=== PATIENT | male | born 1950 | race Caucasian/White ===

== ENCOUNTER 2017-01-22 14:43 | Outpatient (CLI) | payer MEDICARE, OTHER | END 2017-01-22 14:44 | disposition home or self-care (01) | DX: I10 Essential (primary) hypertension (principal); E78.5 Hyperlipidemia, unspecified; R73.9 Hyperglycemia, unspecified; Z13.29 Encounter for screening for other suspected endocrine disorder ==

== ENCOUNTER 2017-06-16 08:18 | Day surgery (SDC) | payer MEDICARE ==
[2017-06-16] MEDS ORDERED: LACTATED RINGERS 1,000 ML IV ONE (08:20)
[2017-06-16] MEDS ORDERED: fentaNYL 100 MCG/2 ML VIAL IVP ONE ×2 (09:50→11:11)
[2017-06-16] MEDS ORDERED: MIDAZOLAM 2 MG/2 ML VIAL IVP ONE ×2 (09:50→11:11)
[2017-06-16] MEDS ORDERED: LACTATED RINGERS 500 ML IV ONE (10:59)
[2017-06-16 11:11] VITALS: BP 114/73
== END 2017-06-16 08:19 | disposition home or self-care (01) ==
LOC: SDS 08:18
PROVIDERS: ATTEND Surgery
PROC: 0DBE8ZX Excision of Large Intestine, Via Natural or Artificial Opening Endoscopic, Diagnostic (ICD-10-PCS; principal; 2017-06-16 09:15)
DX: Z12.11 Encounter for screening for malignant neoplasm of colon (principal); D12.3 Benign neoplasm of transverse colon; D12.4 Benign neoplasm of descending colon; D12.5 Benign neoplasm of sigmoid colon; K57.90 Diverticulosis of intestine, part unspecified, without perforation or abscess without bleeding; I10 Essential (primary) hypertension; E11.40 Type 2 diabetes mellitus with diabetic neuropathy, unspecified; Z79.84 Long term (current) use of oral hypoglycemic drugs; E78.5 Hyperlipidemia, unspecified; F17.210 Nicotine dependence, cigarettes, uncomplicated
CPT/HCPCS: 45384; 88305; J7120

== ENCOUNTER 2017-09-11 08:00 | Outpatient (CLI) | payer MEDICARE ==
[2017-09-12 14:21] LABS: TEST RESULT REPORT
== END 2017-09-11 08:01 | disposition home or self-care (01) ==
LOC: LAB.R 08:00
PROVIDERS: ATTEND Nurse Practitioner Family
DX: R19.7 Diarrhea, unspecified (principal)
CPT/HCPCS: 81599; 87045; 87046; 87177; 87209; 87493

== ENCOUNTER 2018-03-26 15:22 | Outpatient (CLI) | END 2018-03-26 15:23 | disposition home or self-care (01) ==

== ENCOUNTER 2018-04-08 07:28 | Day surgery (SDC) | payer MEDICARE ==
[~2018-04-08 07:28] MED LIST: BRIMONIDINE 0.2% OPHTH DROPS 5 ML ONE; BSS/LIDOCAINE/EPINEPHRINE 1 ML SYRINGE ONE; EPINEPHrine 1 MG/ML AMP ONE; TIMOLOL 0.5% OPHTH DROPS ONE; TRIAMCIN/MOXIFLOX OPHTHALMIC 0.6 ML VIAL IO ONE; VANCOMYCIN OPHTHALMI 8MG/0.8ML 8 MG/0.8 ML SYRINGE IO ONE
[2018-04-08] MEDS ORDERED: KETOROLAC 0.45% OPHTH DROPS ONE (07:30)
[2018-04-08] MEDS ORDERED: CYCLOPENTOLATE 1% OPHTH DROPS 2 ML ONE (07:31)
[2018-04-08] MEDS ORDERED: PHENYLEPHRINE 2.5% OPHTH 2 ML DROPS ONE (07:31)
[2018-04-08] MEDS ORDERED: PROPARACAINE 0.5% OPHTH DROPS 15 ML ONE (07:31)
[2018-04-08] MEDS ORDERED: CYCLOPENTOLATE 1% OPHTH DROPS 2 ML RIGHTEYE ONE (07:50)
[2018-04-08] MEDS ORDERED: PROPARACAINE 0.5% OPHTH DROPS 15 ML RIGHTEYE ONE ×2 (07:50→09:10)
[2018-04-08] MEDS ORDERED: KETOROLAC 0.45% OPHTH DROPS RIGHTEYE ONE (07:50)
[2018-04-08] MEDS ORDERED: PHENYLEPHRINE 2.5% OPHTH 2 ML DROPS RIGHTEYE ONE (07:50)
[2018-04-08] MEDS ORDERED: LACTATED RINGERS 500 ML IV ONE (08:07)
[2018-04-08] MEDS ORDERED: BRIMONIDINE 0.2% OPHTH DROPS 5 ML OPTH ONE (09:10)
[2018-04-08] MEDS ORDERED: MIDAZOLAM 2 MG/2 ML VIAL IVP ONE (09:10)
[2018-04-08] MEDS ORDERED: TIMOLOL 0.5% OPHTH DROPS OPTH ONE (09:10)
[2018-04-08] MEDS ORDERED: EPINEPHrine 1 MG/ML AMP IR ONE (09:10)
[2018-04-08] MEDS ORDERED: BSS/LIDOCAINE/EPINEPHRINE 1 ML SYRINGE IO ONE (09:10)
[2018-04-08] MEDS ORDERED: CHONDR SULF/HYALURONATE SYRINGE IO ONE (09:10)
[2018-04-08 09:59] VITALS: BP 129/54
--- NOTE | 2018-04-08 10:41 | OPERATIVE REPORT ---
DATE OF SERVICE: 04/08/2018 Physician: Samy Stacy MD PREOPERATIVE DIAGNOSIS: Visually significant cataract, right eye. Cataract surgery was performed on his left eye on 12/20/2015. POSTOPERATIVE DIAGNOSIS: Visually significant cataract, right eye. Cataract surgery was performed on his left eye on 12/20/2015. PROCEDURE: Phacoemulsification with posterior chamber intraocular lens implant, right eye. SURGEON: Samy Stacy MD ANESTHESIA: Monitored anesthesia care. COMPLICATIONS: None. OPERATIVE INDICATIONS: This is a 67-year-old man with progressive vision loss in the right eye due to 3+ nuclear sclerotic cataract. Best corrected visual acuity was 20/30 with glare to 20/60 in the right eye. INDICATIONS FOR SURGERY: Overall decrease in vision, difficulty seeing words on the computer screen, difficulty reading, difficulty seeing words, closed captions with game scores on TV, difficulty driving in low light or at night, difficulty driving at night because of headlights from other vehicles, difficulty with glare or bright lights in any situation, and difficulty tracking a golf ball. He was consented at length concerning risks and benefits of cataract surgery, after which he expressed a desire to proceed with surgery. OPERATIVE PROCEDURE: The patient was taken to OR #3 and placed under monitored anesthesia care. Surgical timeout was conducted confirming correct patient, correct procedure, and correct surgical site. He was given topical anesthesia and then prepped and draped in usual sterile fashion. The eye was entered at the 12 and 9 o'clock positions. Intracameral Shugarcaine was injected into the anterior chamber, followed by Viscoat. A continuous-tear curvilinear capsulorrhexis was performed. The nucleus was hydrodissected and phacoemulsified. The cortex was evacuated using automated infusion and aspiration. Provisc was injected in the capsular bag, and a 24.0 diopter intraocular lens was inserted in the bag. Approximately 0.9 mL of a mixture of triamcinolone, moxifloxacin, and vancomycin was injected subconjunctivally in the superior quadrant for infection and inflammation prophylaxis. I and A was used to evacuate the viscoelastic materials. The eye was inflated to physiologic pressure using balanced salt solution and found to be watertight. The patient was taken from the operating room in good condition and given postop instructions. TD: 04/08/2018 09:38
== END 2018-04-08 07:29 | disposition home or self-care (01) ==
LOC: SDS 07:28
PROVIDERS: ATTEND Ophthalmology
PROC: 08RJ3JZ Replacement of Right Lens with Synthetic Substitute, Percutaneous Approach (ICD-10-PCS; principal; 2018-04-08 08:30)
DX: H25.11 Age-related nuclear cataract, right eye (principal); I10 Essential (primary) hypertension; F17.210 Nicotine dependence, cigarettes, uncomplicated; I48.91 Unspecified atrial fibrillation; H46.8 Other optic neuritis; E11.42 Type 2 diabetes mellitus with diabetic polyneuropathy
CPT/HCPCS: 66984; A9270; J3490; V2632

== ENCOUNTER 2018-07-30 15:29 | Outpatient (CLI) | payer MEDICARE ==
[2018-07-30 18:30] LABS: BUN - BLOOD UREA NITROGEN < 5 mg/dL (6-20); CALCIUM 8.5 mg/dL (8.5-10.3); CARBON DIOXIDE - CO2 27 mmol/L (21-32); CHLORIDE 99 mmol/L (101-111); CREATININE 0.8 mg/dL (0.6-1.2); GFR - MDRD 96 (>89); GLUCOSE 97 mg/dL (70-100); SODIUM 137 mmol/L (135-145)
[2018-07-30 19:23] LABS: HB2 TOTAL 12.3 g/dL; HEMOGLOBIN A1C 0.44 g/dL; HEMOGLOBIN A1C % 5.4 % (4.6-6.2)
== END 2018-07-30 15:30 | disposition home or self-care (01) ==
LOC: LAB.F 15:29
PROVIDERS: ATTEND Nurse Practitioner Family
DX: E11.9 Type 2 diabetes mellitus without complications (principal); I10 Essential (primary) hypertension
CPT/HCPCS: 36415; 80048; 83036

== ENCOUNTER 2018-11-19 15:09 | Outpatient (CLI) | payer MEDICARE ==
[2018-11-19 20:44] LABS: HB2 TOTAL 12.2 g/dL; HEMOGLOBIN A1C 0.48 g/dL; HEMOGLOBIN A1C % 5.8 % (4.6-6.2)
== END 2018-11-19 15:10 | disposition home or self-care (01) ==
LOC: LAB.F 15:09
PROVIDERS: ATTEND Nurse Practitioner Family
DX: E11.9 Type 2 diabetes mellitus without complications (principal)
CPT/HCPCS: 36415; 83036

== ENCOUNTER 2019-09-08 09:16 | Outpatient (CLI) | payer MEDICARE | END 2019-09-08 09:17 | disposition short-term general hospital (02) | LOC: EMS 09:16 | PROVIDERS: ATTEND Surgery | DX: R40.20 Unspecified coma (principal); R09.89 Other specified symptoms and signs involving the circulatory and respiratory systems; R53.83 Other fatigue; S69.92XA Unspecified injury of left wrist, hand and finger(s), initial encounter; W10.9XXA Fall (on) (from) unspecified stairs and steps, initial encounter; Y92.009 Unspecified place in unspecified non-institutional (private) residence as the place of occurrence of the external cause | CPT/HCPCS: A0425; A0427 ==

== ENCOUNTER 2019-11-11 12:34 | Outpatient (CLI) | payer MEDICARE ==
[2019-11-11 13:00] LABS: ALBUMIN 3.2 g/dL (3.2-5.5); ALBUMIN/GLOBULIN RATIO 0.7 (1.0-2.2); ALKALINE PHOSPHATASE 108 IU/L (42-121); ALT ALANINE AMINOTRANSFERASE < 10 IU/L (10-60); AST ASPARTATE AMINOTRANSFERASE 24 IU/L (10-42); BILIRUBIN,TOTAL 0.6 mg/dL (0.2-1.0); BUN - BLOOD UREA NITROGEN < 5 mg/dL (6-20); CALCIUM 8.6 mg/dL (8.5-10.3); CARBON DIOXIDE - CO2 25 mmol/L (21-32); CHLORIDE 101 mmol/L (101-111); CREATININE 0.8 mg/dL (0.6-1.2); GFR - MDRD 96 (>89); GLUCOSE 144 mg/dL (70-100); SODIUM 136 mmol/L (135-145); TOTAL PROTEIN 7.5 g/dL (6.7-8.2)
[2019-11-11 13:06] LABS: HB2 TOTAL 9.3 g/dL; HEMOGLOBIN A1C 0.38 g/dL; HEMOGLOBIN A1C % 5.9 % (4.6-6.2)
[2019-11-11] MEDS ORDERED: GADOBUTROL 10 MMOL/10 ML VIAL ONE (13:19)
[2019-11-11] MEDS ORDERED: GADOBUTROL 10 MMOL/10 ML VIAL IVP ONE (14:09)
--- NOTE | 2019-11-12 13:55 | MRI Report ---
Reason: MENINGIOMA Procedure Date: 11/11/2019 Accession Number: [id number] / [id number] Procedure: MRI - Brain W/WO CPT Code: Addended Final Report FULL RESULT: EXAM: MRI BRAIN WITHOUT AND WITH CONTRAST EXAM DATE: 11/11/2019 02:21 PM. CLINICAL HISTORY: 69-year-old with history of meningioma postresection. Evaluate for intracranial pathology. COMPARISON: Outside CT head report 09/26/2019. TECHNIQUE: Multiplanar, multisequence T1-weighted and fluid-sensitive MR sequences of the brain were performed before and after administration of intravenous contrast. Sequences optimized for routine evaluation. Other: None. IV Contrast: 8 mL Gadavist. FINDINGS: Brain Volume: Normal for age. Parenchyma: Postsurgical changes of right frontal temporal craniotomy for resection of a right frontal convexity extra-axial mass lesion. No acute parenchymal hemorrhage or mass seen. There is 4 mm of leftward midline shift. There is mild bilateral areas of T2/FLAIR signal hyperintensity seen. No areas of restricted diffusion seen to suggest acute infarct. No areas of abnormal parenchymal hemosiderin deposition. No abnormal postcontrast enhancement. Ventricles/Cisterns: Postsurgical changes of right frontal temporal craniotomy with a extra-axial collection underlying the craniotomy defect measuring up to 11 mm in maximal thickness (series 601, image 14). There is T2 signal hyperintensity and FLAIR signal hyperintensity layering dependently that may represent proteinaceous debris or old hemosiderin blood products. There is associated mass effect on the underlying brain parenchyma with 4 mm of leftward midline shift. No other definite abnormal extra-axial fluid collection/mass seen. No evidence of hydrocephalus. No evidence of intraventricular hemorrhage. Orbits: Changes of bilateral lens replacement. Sella Turcica: The pituitary gland, cavernous sinuses, suprasellar cistern and optic chiasm are unremarkable. IAC: Symmetric and unremarkable. Vasculature: Normal signal flow void is seen in the major arterial structures at the skull base. The dural sinuses are patent and enhance normally. Sinuses: Tiny bilateral maxillary mucosal retention cysts versus polyps. Minimal mucosal thickening of the mastoid air cells. Small to moderate right and trace left mastoid effusions. Bones: Post surgical changes as detailed above. Other: T2 hyperintense lesion involving the left paramedian posterior nasopharynx measuring 11 x 18 mm (series 601, image 4) that may represent mucosal retention cyst. There is a right paramedian posterior nasopharynx T2 hyperintense lesion measuring 6 x 9 mm (601, image 4) also likely representing mucosal retention cyst. IMPRESSION: 1. Post surgical changes of right frontal temporal craniotomy for resection of a right frontal convexity extra-axial mass lesion. No definite new mass or mass-like enhancement seen to suggest recurrent or residual disease. 2. There is an extra-axial collection underlying the craniotomy defect measuring up to 11 mm producing mass effect on underlying brain parenchyma with approximately 3-4 mm of leftward midline shift. 3. No acute infarct or acute intracranial hemorrhage seen. No abnormal postcontrast enhancement. 4. Mild white matter changes seen that are nonspecific but may represent sequela of chronic small vessel ischemic disease. [facility] ADDENDUM: 11/16/19 12:49 Since prior dictation MR brain 09/20/2019 and 09/09/2019 are now available for comparison. FINDINGS: Brain Volume: Normal for age. Parenchyma: Postsurgical changes of right frontal temporal craniotomy for resection of a right frontal convexity extra-axial mass lesion. No acute parenchymal hemorrhage or mass seen. There is 4 mm of leftward midline shift improved from MR brain 09/20/2019 at which time it measured up to 6 mm. There are mild bilateral areas of T2/FLAIR signal hyperintensity seen that are similar to MR brain 09/20/2019. No areas of restricted diffusion seen to suggest acute infarct. No areas of abnormal parenchymal hemosiderin deposition. No abnormal postcontrast enhancement. Ventricles/Cisterns: Postsurgical changes of right frontal temporal craniotomy with a extra-axial collection underlying the craniotomy defect measuring up to 11 mm in maximal thickness (series 601, image 14). There is T2 signal hyperintensity and FLAIR signal hyperintensity layering dependently that may represent proteinaceous debris or old hemosiderin blood products. Previously the extra-axial collection contained predominantly air and measured up to 19 mm in maximal thickness. There is associated mass effect on the underlying brain parenchyma with 4 mm of leftward midline shift, improved from prior study, as detailed above.. No other definite abnormal extra-axial fluid collection/mass seen. No evidence of hydrocephalus. No evidence of intraventricular hemorrhage. Orbits: Changes of bilateral lens replacement. Sella Turcica: The pituitary gland, cavernous sinuses, suprasellar cistern and optic chiasm are unremarkable. IAC: Symmetric and unremarkable. Vasculature: Normal signal flow void is seen in the major arterial structures at the skull base. The dural sinuses are patent and enhance normally. Sinuses: Tiny bilateral maxillary mucosal retention cysts versus polyps. Minimal mucosal thickening of the mastoid air cells. Small to moderate right and trace left mastoid effusions. Bones: Post surgical changes as detailed above. Other: T2 hyperintense lesion involving the left paramedian posterior nasopharynx measuring 11 x 18 mm (series 601, image 4) that may represent mucosal retention cyst, unchanged from prior study. There is a right paramedian posterior nasopharynx T2 hyperintense lesion measuring 6 x 9 mm (601, image 4) also likely representing mucosal retention cyst, stable from prior study. IMPRESSION: 1. Post surgical changes of right frontal temporal craniotomy for resection of a right frontal convexity extra-axial mass lesion. No definite new mass or mass-like enhancement seen to suggest recurrent or residual disease. 2. There is an extra-axial collection underlying the craniotomy defect measuring up to 11 mm. It is decreased compared to MR brain 09/20/2019. Although there has been a decrease and thickness of extra-axial collection there has been increase in fluid with layering fluid- fluid level. There is mass effect with approximately 3-4 mm of leftward midline shift, improved from MR brain 09/20/2019 at which time it measured up to 6 mm. 3. No acute infarct or acute intracranial hemorrhage seen. No abnormal postcontrast enhancement. 4. Mild white matter changes seen, similar to MR brain 09/20/2019, that are nonspecific but may represent sequela of chronic small vessel ischemic disease. [facility]
== END 2019-11-11 12:35 | disposition home or self-care (01) ==
LOC: DI 12:34
PROVIDERS: ATTEND Internal Medicine
DX: D32.9 Benign neoplasm of meninges, unspecified (principal); E11.9 Type 2 diabetes mellitus without complications; Z98.890 Other specified postprocedural states
CPT/HCPCS: 36415; 70553; 80053; 83036; A9585

== ENCOUNTER 2019-12-07 08:00 | Outpatient (CLI) | payer MEDICARE | END 2019-12-07 23:59 | disposition home or self-care (01) | LOC: LAB.R 08:00 | PROVIDERS: ATTEND Internal Medicine | DX: N30.90 Cystitis, unspecified without hematuria (principal) | CPT/HCPCS: 87086; 87181 ==

== ENCOUNTER 2020-12-11 14:57 | Outpatient (CLI) | payer MEDICARE ==
[2020-12-11 15:07] LABS: CREATININE 0.9 mg/dL (0.6-1.2)
[2020-12-11] MEDS ORDERED: GADOBUTROL 10 MMOL/10 ML VIAL ONE (15:14)
[2020-12-11] MEDS ORDERED: GADOBUTROL 10 MMOL/10 ML VIAL IVP ONE (15:56)
--- NOTE | 2020-12-11 16:25 | MRI Report ---
PROCEDURE: Brain W/WO INDICATIONS: MENINGIOMA DETERMINED BY BIOPSY OF BRAIN CONTRAST: IV CONTRAST: Gadavist ml: 8.5 TECHNIQUE: Noncontrast axial T1 spin echo, axial T2 fast spin echo, sagittal and axial FLAIR, coronal T2 fast sp in echo, axial gradient echo, axial diffusion and ADC through the brain. After the administration of contrast, axial and coronal T1 spin echo with fat saturation through the brain. COMPARISON: Brain MRI dated 11/11/2019 FINDINGS: Image quality: Excellent. CSF spaces: Basal cisterns are patent. Previously seen extra-axial fluid collection underlying the r ight frontal craniotomy has decreased, currently measuring roughly 5 mm in thickness. Ventricles are normal in size and shape. Brain: No midline shift. No intracranial bleeds or masses. No abnormal intracranial enhancement. There is mild cerebral volume loss for age. Minimal There is periventricular white matter chronic sm all vessel ischemic change. The brainstem appears normal. Diffusion-weighted images demonstrate no acute ischemic insults. No chronic ischemic insults. Normal intravascular flow voids are present. Skull and face: Right frontal craniotomy has been performed. Calvarial marrow is otherwise normal in signal. Orbits appear normal. Sinuses: Sinuses and mastoids appear clear. IMPRESSION: 1. Postsurgical sequelae. 2. No evidence of recurrent nor residual meningioma. 3. Resolving postsurgical fluid collection underlying the craniotomy. 4. No acute process. No recent infarct. 5. Mild diffuse cerebral volume loss. Minimal small vessels coming disease. Reviewed by: Dank Keys MD on 12/11/2020 4:24 PM PST Approved by: Dank Keys MD on 12/11/2020 4:24 PM PST Station ID: [id number]
== END 2020-12-11 14:58 | disposition home or self-care (01) ==
LOC: DI 14:57
PROVIDERS: ATTEND Neurological Surgery
DX: D32.0 Benign neoplasm of cerebral meninges (principal)
CPT/HCPCS: 36415; 70553; 82565; A9585

== ENCOUNTER 2021-11-06 14:52 | Outpatient (CLI) | payer MEDICARE ==
[2021-11-06 19:50] LABS: BASOPHILS # (AUTO) 0.1 10^3/uL (0.0-0.1); BASOPHILS % (AUTO) 0.8 %; EOSINOPHILS # (AUTO) 0.4 10^3/uL (0.0-0.7); EOSINOPHILS % (AUTO) 3.9 %; HCT - HEMATOCRIT 50.6 % (42.0-52.0); HGB - HEMOGLOBIN 17.1 g/dL (14.0-18.0); LYMPHOCYTES # (AUTO) 3.1 10^3/uL (1.5-3.5); LYMPHOCYTES % (AUTO) 32.1 %; MEAN CORPUSCULAR HGB CONC 33.8 g/dL (32.0-36.0); MEAN CORPUSCULAR VOLUME 100.6 fL (80.0-94.0); MEAN PLATELET VOLUME 9.8 fL (7.4-11.4); MONOCYTES % (AUTO) 10.5 %; NEUTROPHILS % (AUTO) 52.1 %; PLT - PLATELET COUNT 214 10^3/uL (130-450); RED BLOOD COUNT 5.03 10^6/uL (4.70-6.10); RED CELL DISTRIBUTION WIDTH 13.2 % (12.0-15.0); WHITE BLOOD COUNT 9.5 x10^3/uL (4.8-10.8)
[2021-11-06 20:08] LABS: ALBUMIN/GLOBULIN RATIO 1.3 (1.0-2.2); ALKALINE PHOSPHATASE 76 IU/L (42-121); ALT ALANINE AMINOTRANSFERASE 19 IU/L (10-60); AST ASPARTATE AMINOTRANSFERASE 24 IU/L (10-42); BUN - BLOOD UREA NITROGEN 8 mg/dL (6-20); CARBON DIOXIDE - CO2 31 mmol/L (21-32); CHLORIDE 97 mmol/L (101-111); CHOL/HDL RATIO 2.6 (<5.0); CHOLESTEROL 145 mg/dL; CREATININE 0.9 mg/dL (0.6-1.2); GFR - MDRD 83 (>89); GLUCOSE 93 mg/dL (70-100); HDL CHOLESTEROL 55 mg/dL; LDL CHOLESTEROL,CALCULATED 67 mg/dL; LDL/HDL RATIO 1.2 (<3.6); POTASSIUM 4.3 mmol/L (3.5-5.0); SODIUM 134 mmol/L (135-145); TOTAL PROTEIN 7.1 g/dL (6.7-8.2); TRIGLYCERIDES 113 mg/dL; VLDL CHOLESTEROL 23 mg/dL
== END 2021-11-06 14:53 | disposition home or self-care (01) ==
LOC: LAB.S 14:52
PROVIDERS: ATTEND Internal Medicine
DX: I10 Essential (primary) hypertension (principal); E78.5 Hyperlipidemia, unspecified; Z12.5 Encounter for screening for malignant neoplasm of prostate
CPT/HCPCS: 36415; 80053; 80061; 83721; 84153; 85025

== ENCOUNTER 2023-05-19 14:48 | Outpatient (CLI) | payer MEDICARE ==
[2023-05-19 15:18] LABS: CREATININE 0.9 mg/dL (0.6-1.3)
== END 2023-05-19 14:49 | disposition home or self-care (01) ==
LOC: LAB 14:48
PROVIDERS: ATTEND Neurological Surgery
DX: D32.0 Benign neoplasm of cerebral meninges (principal)
CPT/HCPCS: 36415; 82565

== ENCOUNTER 2023-05-19 14:48 | Outpatient (CLI) | payer MEDICARE ==
--- NOTE | 2023-05-20 08:44 | MRI Report ---
PROCEDURE: BRAIN W/WO INDICATIONS: MENINGIOMA CONTRAST: gadavist 7.3ml TECHNIQUE: Noncontrast axial T1 spin echo, axial T2 fast spin echo, sagittal and axial FLAIR, coronal T2 fast sp in echo, axial gradient echo, axial diffusion and ADC through the brain. After the administration of contrast, axial and coronal T1 spin echo with fat saturation through the brain. COMPARISON: 03/26/2022, 12/11/2020, 11/11/2019. FINDINGS: Image quality: Excellent. CSF spaces: Basal cisterns are patent. No extra-axial fluid collections. Ventricles are normal in size and shape. Brain: No midline shift. No intracranial bleeds or masses. No abnormal intracranial enhancement. There is cerebral volume loss for age. There is periventricular white matter chronic small vessel is chemic change. The brainstem appears normal. Diffusion-weighted images demonstrate no acute ischemi c insults. No chronic ischemic insults. Normal intravascular flow voids are present. Skull and face: Right frontal craniotomy has been performed. Calvarial marrow is otherwise normal in signal. Orbits appear normal. Sinuses: Small amount of right mastoid fluid. IMPRESSION: 1. Postsurgical sequelae. 2. No evidence of tumor recurrence. Reviewed by: Dank Keys MD on 05/20/2023 8:43 AM PDT Approved by: Dank Keys MD on 05/20/2023 8:43 AM PDT Station ID: [id number]
== END 2023-05-19 14:49 | disposition home or self-care (01) ==
LOC: DI 14:48
PROVIDERS: ATTEND Neurological Surgery
DX: D32.0 Benign neoplasm of cerebral meninges (principal)
CPT/HCPCS: 36415; 70553; 82565; A9585

== ENCOUNTER 2023-07-09 14:11 | Outpatient (CLI) | payer MEDICARE ==
[2023-07-09 19:47] LABS: BASOPHILS # (AUTO) 0.1 10^3/uL (0.0-0.1); EOSINOPHILS # (AUTO) 0.4 10^3/uL (0.0-0.7); EOSINOPHILS % (AUTO) 3.5 %; HCT - HEMATOCRIT 46.9 % (42.0-52.0); HGB - HEMOGLOBIN 15.7 g/dL (14.0-18.0); LYMPHOCYTES # (AUTO) 3.6 10^3/uL (1.5-3.5); LYMPHOCYTES % (AUTO) 32.9 %; MEAN CORPUSCULAR HEMOGLOBIN 33.8 pg (27.0-31.0); MEAN CORPUSCULAR HGB CONC 33.5 g/dL (32.0-36.0); MEAN CORPUSCULAR VOLUME 101.1 fL (80.0-94.0); MEAN PLATELET VOLUME 9.6 fL (7.4-11.4); MONOCYTES # (AUTO) 1.3 10^3/uL (0.0-1.0); MONOCYTES % (AUTO) 11.9 %; NEUTROPHILS # (AUTO) 5.6 10^3/uL (1.5-6.6); NEUTROPHILS % (AUTO) 50.3 %; PLT - PLATELET COUNT 143 10^3/uL (130-450); RED BLOOD COUNT 4.64 10^6/uL (4.70-6.10); RED CELL DISTRIBUTION WIDTH 12.9 % (12.0-15.0); WHITE BLOOD COUNT 11.1 x10^3/uL (4.8-10.8)
[2023-07-09 20:02] LABS: ALBUMIN 4.1 g/dL (3.2-5.5); ALBUMIN/GLOBULIN RATIO 1.4 (1.0-2.2); ALKALINE PHOSPHATASE 83 IU/L (42-121); ALT ALANINE AMINOTRANSFERASE 21 IU/L (10-60); AST ASPARTATE AMINOTRANSFERASE 31 IU/L (10-42); BILIRUBIN,TOTAL 0.7 mg/dL (0.2-1.0); BUN - BLOOD UREA NITROGEN 18 mg/dL (6-20); CALCIUM 9.3 mg/dL (8.5-10.3); CARBON DIOXIDE - CO2 29 mmol/L (21-32); CHLORIDE 102 mmol/L (101-111); CHOL/HDL RATIO 2.1 (<5.0); CHOLESTEROL 128 mg/dL; CREATININE 0.8 mg/dL (0.6-1.3); GFR - MDRD 95 (>89); GLUCOSE 94 mg/dL (74-104); HDL CHOLESTEROL 60 mg/dL; LDL CHOLESTEROL,CALCULATED 47 mg/dL; LDL/HDL RATIO 0.8 (<3.6); POTASSIUM 4.2 mmol/L (3.5-4.5); SODIUM 136 mmol/L (135-145); TRIGLYCERIDES 104 mg/dL (48-352); VLDL CHOLESTEROL 21 mg/dL
== END 2023-07-09 14:12 | disposition home or self-care (01) ==
LOC: LAB.S 14:11
PROVIDERS: ATTEND Registered Nurse
DX: I10 Essential (primary) hypertension (principal); E78.5 Hyperlipidemia, unspecified
CPT/HCPCS: 36415; 80053; 80061; 83721; 85025